=== PATIENT | male | born 1990 | race Caucasian/White ===

== ENCOUNTER 2017-12-02 06:41 | Outpatient (CLI) | payer OTHER | END 2017-12-02 06:56 | disposition home or self-care (01) | LOC: LAB 06:41 | DX: R03.0 Elevated blood-pressure reading, without diagnosis of hypertension (principal); Z13.1 Encounter for screening for diabetes mellitus ==

== ENCOUNTER 2019-01-12 16:53 | Outpatient (CLI) | payer OTHER | END 2019-01-12 17:21 | disposition home or self-care (01) | LOC: RAD 16:53 | DX: M54.89 Other dorsalgia (principal) ==

== ENCOUNTER 2019-03-16 08:46 | Outpatient (CLI) | payer OTHER | END 2019-03-16 08:54 | disposition home or self-care (01) | LOC: LAB 08:46 | DX: J11.1 Influenza due to unidentified influenza virus with other respiratory manifestations (principal); J06.9 Acute upper respiratory infection, unspecified ==

== ENCOUNTER → 2019-07-20 06:29 | Outpatient (CLI) | payer OTHER | END | disposition home or self-care (01) | LOC: LAB 06:29 | DX: J11.1 Influenza due to unidentified influenza virus with other respiratory manifestations (principal); Z00.01 Encounter for general adult medical examination with abnormal findings; Z13.6 Encounter for screening for cardiovascular disorders ==

== ENCOUNTER 2019-11-01 14:47 | Outpatient (CLI) | payer OTHER | END 2019-11-01 14:55 | disposition home or self-care (01) | LOC: CERTIFICAD 14:47 | PROVIDERS: ATTEND Family Medicine | DX: Z11.1 Encounter for screening for respiratory tuberculosis (principal) ==

== ENCOUNTER 2020-03-24 23:08 | Emergency (ER) | payer OTHER ==
[~2020-03-24] VITALS: Ht 190.5 cm; Wt 145.1 kg
[2020-03-24] MEDS ORDERED: ALBUTEROL (23:29)
[2020-03-24] MEDS ORDERED: SOLU-MEDROL (23:55)
[2020-03-25] MEDS ORDERED: SYMBICORT 16010.2 GM IH (02:41)
[2020-03-25] MEDS ORDERED: XOPENEX HFA15 GM IH (02:41)
[2020-03-25] MEDS ORDERED: PROVENTIL HFA6.7 GM IH (02:41)
[2020-03-25] MEDS ORDERED: XOPENEX0.63 MG/3 IH (02:41)
[2020-03-25] MEDS ORDERED: ALBUTEROL2.5 MG/3 M IH (02:41)
[2020-03-25] MEDS ORDERED: ZYNCOF 20-400120 ML PO (02:41)
== END 2020-03-25 02:49 | disposition home or self-care (01) ==
LOC: ER 23:08
DX: J45.998 Other asthma (principal); Z03.818 Encounter for observation for suspected exposure to other biological agents ruled out

== ENCOUNTER 2020-05-23 21:31 | Emergency (ER) | payer OTHER ==
[~2020-05-23] VITALS: Ht 190.5 cm; Wt 149.2 kg
[~2020-05-23 21:31] MED LIST: ALBUTEROL; ALBUTEROL2.5 MG/3 M IH; PROVENTIL HFA6.7 GM IH; SOLU-MEDROL; SYMBICORT 16010.2 GM IH; XOPENEX HFA15 GM IH; XOPENEX0.63 MG/3 IH; ZYNCOF 20-400120 ML PO
== END 2020-05-24 00:41 | disposition home or self-care (01) ==
LOC: ER 21:31
DX: S13.4XXA Sprain of ligaments of cervical spine, initial encounter (principal); S00.83XA Contusion of other part of head, initial encounter; M54.5 Low back pain; V49.88XA Car occupant (driver) (passenger) injured in other specified transport accidents, initial encounter; Y93.89 Activity, other specified; Y92.488 Other paved roadways as the place of occurrence of the external cause; Y99.8 Other external cause status; Z03.818 Encounter for observation for suspected exposure to other biological agents ruled out

== ENCOUNTER 2020-08-16 15:34 | Emergency (ER) | payer OTHER ==
[~2020-08-16] VITALS: Ht 190.5 cm; Wt 145.1 kg
[2020-08-16] MEDS ORDERED: BUDEO.25 (16:04)
== END 2020-08-16 17:48 | disposition home or self-care (01) ==
LOC: ER 15:34
DX: H10.11 Acute atopic conjunctivitis, right eye (principal)

== ENCOUNTER → 2020-10-18 | Outpatient (CLI) | payer OTHER ==
[~2020-10-18] MED LIST changes: +BUDEO.25; +MEDROLPACK PO; +XYZAL5 MG; +XYZAL5 MG PO
== END | disposition home or self-care (01) ==
LOC: LAB 11:32
PROVIDERS: ATTEND Internal Medicine
DX: Z11.52 Encounter for screening for COVID-19 (principal)

== ENCOUNTER 2020-10-27 07:13 | Emergency (ER) | payer OTHER ==
[~2020-10-27] VITALS: Ht 190.5 cm; Wt 145.1 kg
[~2020-10-27 07:13] MED LIST changes: -MEDROLPACK PO; -XYZAL5 MG; -XYZAL5 MG PO
[2020-10-27] MEDS ORDERED: XYZAL5 MG (08:30)
[2020-10-27] MEDS ORDERED: MEDROLPACK PO (08:31)
[2020-10-27] MEDS ORDERED: XYZAL5 MG PO (08:32)
== END 2020-10-27 09:01 | disposition home or self-care (01) ==
LOC: ER 07:13
DX: L50.0 Allergic urticaria (principal)

== ENCOUNTER 2020-12-19 08:00 | Outpatient (CLI) | payer OTHER ==
[~2020-12-19 08:00] MED LIST changes: +MEDROLPACK PO; +XYZAL5 MG; +XYZAL5 MG PO
== END 2020-12-19 08:30 | disposition home or self-care (01) ==
LOC: PPH VACUNA 08:00
PROVIDERS: ATTEND Emergency Medicine Pediatric Emergency Medicine
DX: Z23 Encounter for immunization (principal)

== ENCOUNTER 2021-02-05 09:00 | Outpatient (CLI) | payer OTHER | END 2021-02-05 09:30 | disposition home or self-care (01) | LOC: PPH VACUNA 09:00 | PROVIDERS: ATTEND Emergency Medicine Pediatric Emergency Medicine | DX: Z23 Encounter for immunization (principal) ==

== ENCOUNTER 2021-04-25 06:32 | Outpatient (CLI) | payer OTHER | END 2021-04-25 06:33 | disposition home or self-care (01) | LOC: LAB 06:32 | PROVIDERS: ATTEND Specialist | DX: D64.9 Anemia, unspecified (principal); N39.0 Urinary tract infection, site not specified; E11.65 Type 2 diabetes mellitus with hyperglycemia; E78.2 Mixed hyperlipidemia ==

== ENCOUNTER 2021-05-26 19:09 | Emergency (ER) | payer OTHER ==
[~2021-05-26] VITALS: Ht 190.5 cm; Wt 145.1 kg
[2021-05-26] MEDS ORDERED: PROAIR RESPICL90 MCG IH (19:24)
[2021-05-26] MEDS ORDERED: MONTELUKAST SODI4 M1 PO (19:24)
[2021-05-26] MEDS ORDERED: CORTISPORIN EAR10 M1 OPHT (21:06)
[2021-05-26] MEDS ORDERED: BENADRYL25 MG PO (21:06)
[2021-05-26] MEDS ORDERED: NAPROXEN500 MG PO (21:06)
[2021-05-26] MEDS ORDERED: BUTALB-ACETAMI1 EACH PO (21:14)
== END 2021-05-26 21:38 | disposition home or self-care (01) ==
LOC: ER 19:09
DX: H60.90 Unspecified otitis externa, unspecified ear (principal); R51.9 Headache, unspecified; Z91.013 Allergy to seafood; Z20.822 Contact with and (suspected) exposure to COVID-19

== ENCOUNTER 2021-09-04 15:17 | Emergency (ER) | payer OTHER ==
[~2021-09-04] VITALS: Ht 190.5 cm; Wt 148.3 kg
[~2021-09-04 15:17] MED LIST changes: +BENADRYL25 MG PO; +BUTALB-ACETAMI1 EACH PO; +CORTISPORIN EAR10 M1 OPHT; +MONTELUKAST SODI4 M1 PO; +NAPROXEN500 MG PO; +PROAIR RESPICL90 MCG IH
[2021-09-04] MEDS ORDERED: POLYMYXIN B-TMP10 ML OP (17:07)
== END 2021-09-04 17:44 | disposition home or self-care (01) ==
LOC: ER 15:17
DX: H10.32 Unspecified acute conjunctivitis, left eye (principal); Z91.013 Allergy to seafood

== ENCOUNTER 2021-12-03 14:00 | Outpatient (CLI) | payer OTHER ==
[~2021-12-03 14:00] MED LIST changes: +POLYMYXIN B-TMP10 ML OP
== END 2021-12-03 14:05 | disposition home or self-care (01) ==
LOC: PPH VACUNA 14:00
PROVIDERS: ATTEND Emergency Medicine Pediatric Emergency Medicine
DX: Z23 Encounter for immunization (principal)